=== PATIENT | female | born 1955 | race African-American/Black ===

== ENCOUNTER → 2018-06-22 | Outpatient (CLI) | payer OTHER ==
[~2018-06-22] MED LIST: ANTIVERT25 MG PO; B COMPLEX WITH1 EACH PO; BENICAR20 MG PO; CALCIUM 600 +1 EAC5 PO; CALCIUM 600 +1 EAC7 PO; CARAFATE 1 GM TA1 GM PO; COZAAR 50 MG TA50 M2 PO; KLOR-CON 1010 MEQ PO; LIPITOR 20 MG T20 M1 PO; NEPHROCAPS SOFT1 CAP PO; NEXIUM40 MG PO; NITROGLYCERIN0.4 MG SUBLING; NORCO 5-325 TA1 EACH PO; TOPROL XL50 MG PO; VITAMIN B-12100 MCG PO; VITAMIN B-121000 MCG PO
== END ==
LOC: RAD 09:03
DX: M79.675 Pain in left toe(s) (principal)

== ENCOUNTER → 2019-07-02 | Outpatient (CLI) | payer OTHER | LOC: RAD 10:31 | DX: Z12.31 Encounter for screening mammogram for malignant neoplasm of breast (principal) ==

== ENCOUNTER → 2020-07-18 | Outpatient (CLI) | payer BC, OTHER | LOC: BC 14:31 | PROVIDERS: ATTEND Family Medicine | DX: Z12.31 Encounter for screening mammogram for malignant neoplasm of breast (principal) ==